=== PATIENT | male | born 1955 | race Caucasian/White ===

== ENCOUNTER 2019-11-14 20:04 | Inpatient (IN) | payer MEDICARE ==
[~2019-11-14] VITALS: Ht 175.3 cm; Wt 90.3 kg
[2019-11-14] MEDS ORDERED: VITAMIN D1000 UNIT PO (20:23)
[2019-11-14] MEDS ORDERED: TOPROL XL100 MG PO (20:23)
[2019-11-14] MEDS ORDERED: LIPITOR80 MG PO (20:23)
[2019-11-14] MEDS ORDERED: LISINOPRIL10 MG PO (20:23)
[2019-11-14] MEDS ORDERED: BAYER CHEWABLE81 MG PO (20:23)
[2019-11-14] MEDS ORDERED: NITROSTAT0.4 MG SL (20:24)
[2019-11-14] MEDS ORDERED: OMEPRAZOLE40 MG PO (20:24)
[2019-11-14 21:01] LABS: BILIRUBIN NEGATIVE (NEGATIVE); GLUCOSE 500 mg/dL (NEGATIVE); KETONE NEGATIVE (NEGATIVE); NITRITE NEGATIVE (NEGATIVE); UROBILINOGEN NORMAL (NORMAL)
[2019-11-14 21:03] LABS: BASOPHILS 0.3 % (0-2); HEMOGLOBIN 13.8 g/dL (13.5-17.5); IMMATURE GRANULOCYTES 0.5 % (0-5); LYMPHOCYTES 42.5 % (15-50); MCH 29.9 pg (26.0-34.0); MCHC 34.5 g/dL (31.0-37.0); MCV 86.8 fL (80.0-100.0); MEAN PLATELET VOLUME 9.8 fL (7.4-10.4); MONOCYTES 9.5 % (2-11); NEUTROPHILS 45.2 % (40-80); PLATELET COUNT 226 10x3/uL (130-400); RBC 4.61 10x6/uL (4.20-6.10); RDW 12.5 % (11.5-14.5); WBC 6.1 10x3/uL (4.8-10.8)
[2019-11-14 21:14] LABS: CALCIUM 8.6 mg/dL (8.5-10.1); CARBON DIOXIDE 26.4 mmol/L (21.0-32.0); CHLORIDE - SERUM 91 mmol/L (98-107); CREATININE - SERUM 1.5 mg/dL (0.6-1.3); POTASSIUM - SERUM 4.9 mmol/L (3.5-5.1); SODIUM 122 mmol/L (136-145); UREA NITROGEN 22 mg/dL (7-18); eGFR NON AFRICAN AMERICAN 50 mL/min (90-120)
[2019-11-14 21:27] LABS: ALBUMIN 3.6 g/dL (3.4-5.0); ALKALINE PHOSPHATASE 130 U/L (30-120); ALT (SGPT) 58 U/L (10-68); BILIRUBIN - TOTAL 0.91 mg/dL (0.2-1.3); MAGNESIUM - SERUM 1.9 mg/dL (1.8-2.4); PRO BNP 74 pg/mL (0-125); THYROID STIMULATING HORMONE 2.01 uIU/mL (0.36-3.74)
[2019-11-14 21:32] LABS: CALC OSMOLALITY 286 mosm/kg (275-300); TROPONIN-I < 0.017 ng/mL (0.000-0.060)
[2019-11-14 21:33] LABS: GLUCOSE 780 mg/dL (74-106)
--- NOTE | 2019-11-14 21:58 | NUR ---
FSBS 379. EDP INFORMED.
--- NOTE | 2019-11-14 23:30 | NUR ---
RECEIVED TO FLOOR VIA WHEELCHAIR. ACCOMPANIED BY ER STAFF AND . A&O X 4. AMBULATED TO BED INDEPENDENTLY. VS STABLE. FSBS 327. PT REPORTS, "THAT SHERITA HORSE PAIN IN MY LEGS IS EASING DOWN AFTER THAT SHOT. REPORTS THIRST AND REQUESTS WATER. BRIEFLY EXPLAINED HOW SLIDING SCALE IS USED TO DETERMINE DOSE AND DIABETIC TEACHING PAPERS GIVEN. NORMAL RANGE GLUCOSE WRITTEN ON BOARD. SCDs IN ROOM, INSTRUCTED ON USE OF INCENTIVE SPIROMETER. YELLOW BAND APPLIED AND CASSIE MAT IN PLACE PT VERBALIZED UNDERSTANDING OF FALL PRECAUTIONS. CL IN REACH, NO FURTHER NEEDS, CTM.
--- NOTE | 2019-11-15 | NUR ---
NO TELEMETRY MONITORS AVAILABLE PER PLESSIS.
[2019-11-15 00:19] VITALS: BP 138/81; BMI 29.4
[2019-11-15 06:10] VITALS: BP 119/58
[2019-11-15 06:48] LABS: APTT 22.1 SECONDS (22.8-39.4); INR 0.92 (0.85-1.17); PROTIME 12.3 SECONDS (11.6-15.0)
--- NOTE | 2019-11-15 07:32 | NUR ---
ALERT AND ORIENTED. LUNGS CLEAR BILATERALLY. HEART SOUNDS S1 AND S2 HEARD IN ALL MATA. BOWEL SOUNDS ACTIVE X 4. SKIN INTACT WITHOUT REDNESS. DENIES NEEDS. BED LOW. CALL MAJOR AND PESRONAL ITEMS INREACH. WILL CONTINUE TO MONITOR.
[2019-11-15] MEDS ORDERED: MULTI-DAY VITAM1 TAB PO (08:41)
[2019-11-15] MEDS ORDERED: METFORMIN HCL500 M1 PO (08:42)
[2019-11-15 08:45] VITALS: BP 128/68
--- NOTE | 2019-11-15 08:48 | NUR ---
PATIENT STATES TAKES LIPITOR AT NIGHT. CALLED PHARMACY AND STATES WILL CHANGE TO Q HS.
[2019-11-15 09:49] LABS: ALKALINE PHOSPHATASE 97 U/L (30-120); ALT (SGPT) 45 U/L (10-68); BILIRUBIN - TOTAL 0.37 mg/dL (0.2-1.3); CALCIUM 8.3 mg/dL (8.5-10.1); CARBON DIOXIDE 23.4 mmol/L (21.0-32.0); CHLORIDE - SERUM 100 mmol/L (98-107); PROTEIN - SERUM 5.9 g/dL (6.4-8.2); SODIUM 132 mmol/L (136-145); UREA NITROGEN 19 mg/dL (7-18)
[2019-11-15 09:52] LABS: CALC OSMOLALITY 275 mosm/kg (275-300); CREATININE - SERUM 0.8 mg/dL (0.6-1.3); GLUCOSE 268 mg/dL (74-106); POTASSIUM - SERUM 3.7 mmol/L (3.5-5.1); eGFR NON AFRICAN AMERICAN > 90 mL/min (90-120)
[2019-11-15 10:01] VITALS: Ht 175.3 cm; Wt 90.3 kg
[2019-11-15 10:37] LABS: BASOPHILS 0.3 % (0-2); EOSINOPHILS 2.8 % (0-7); HEMOGLOBIN 12.3 g/dL (13.5-17.5); IMMATURE GRANULOCYTES 0.7 % (0-5); LYMPHOCYTES 45.1 % (15-50); MCH 29.8 pg (26.0-34.0); MCHC 35.1 g/dL (31.0-37.0); MEAN PLATELET VOLUME 9.8 fL (7.4-10.4); MONOCYTES 8.3 % (2-11); NEUTROPHILS 42.8 % (40-80); PLATELET COUNT 209 10x3/uL (130-400); RBC 4.13 10x6/uL (4.20-6.10); RDW 12.5 % (11.5-14.5)
[2019-11-15 10:51] LABS: MCV 84.7 fL (80.0-100.0)
--- NOTE | 2019-11-15 11:07 | NUR ---
EFE SANTILLAN NOTIFIED THAT PATIENT'S BLOOD SUGAR 485. NEW ORDERS GIVEN AND PLACED.
--- NOTE | 2019-11-15 11:47 | NUR ---
PATIENT RETURNED FROM BRONCHOSCOPY. VITALS STABLE. WILL CONTINUE TO MONITOR.
[2019-11-15 12:00] VITALS: BP 134/69
--- NOTE | 2019-11-15 13:14 | NUR ---
PATIENT BLOOD SUGAR DOWN TO 354 ON RECHECK. WILL CONTINUE TO MONITOR.
--- NOTE | 2019-11-15 14:56 | NUR ---
DIETARY CONSULT PLACED FOR DIABETIC EDUCATION PER EFE SANTILLAN.
[2019-11-15 16:00] VITALS: BP 120/69
--- NOTE | 2019-11-15 18:04 | NUR ---
RESTING IN BED. DENIES NEEDS. WILL CONTINUE TO MONITOR.
[2019-11-15 20:00] VITALS: BP 114/64
--- NOTE | 2019-11-15 21:00 | NUR ---
REFUSING ALL MEDS OTHER THAN INSULINS. REPORTS HE'S NOT PAYING FOR THE HOSPITALS PILLS WHEN HE HAS HIS OWN.
[2019-11-16] VITALS: BP 106/52
[2019-11-16 04:00] VITALS: BP 125/77
[2019-11-16 05:26] LABS: BASOPHILS 0.3 % (0-2); EOSINOPHILS 2.6 % (0-7); HEMATOCRIT 37.7 % (42.0-54.0); IMMATURE GRANULOCYTES 0.4 % (0-5); LYMPHOCYTES 35.6 % (15-50); MCH 29.5 pg (26.0-34.0); MCHC 34.5 g/dL (31.0-37.0); MCV 85.5 fL (80.0-100.0); MEAN PLATELET VOLUME 9.7 fL (7.4-10.4); MONOCYTES 7.1 % (2-11); PLATELET COUNT 212 10x3/uL (130-400); RBC 4.41 10x6/uL (4.20-6.10); RDW 12.6 % (11.5-14.5)
[2019-11-16 05:46] LABS: WBC 7.7 10x3/uL (4.8-10.8)
[2019-11-16 05:58] LABS: ALBUMIN 2.8 g/dL (3.4-5.0); ALKALINE PHOSPHATASE 93 U/L (30-120); ALT (SGPT) 45 U/L (10-68); CALC OSMOLALITY 275 mosm/kg (275-300); CALCIUM 8.4 mg/dL (8.5-10.1); CARBON DIOXIDE 26.8 mmol/L (21.0-32.0); CHLORIDE - SERUM 101 mmol/L (98-107); CREATININE - SERUM 0.9 mg/dL (0.6-1.3); GLUCOSE 254 mg/dL (74-106); POTASSIUM - SERUM 4.1 mmol/L (3.5-5.1); PROTEIN - SERUM 5.5 g/dL (6.4-8.2); SODIUM 133 mmol/L (136-145); UREA NITROGEN 15 mg/dL (7-18); eGFR NON AFRICAN AMERICAN > 90 mL/min (90-120)
[2019-11-16 11:05] VITALS: BP 121/71
--- NOTE | 2019-11-16 13:53 | NUR ---
Nutrition consult re: diabetic diet From 11/15/19 RDN reviewed diabetic consistent CHO diet with pt. Pt reports eating and drinking a lot of CHO at meals. Pt lunch tray had 5 milks. Pt reports drinking a gallon of milk a day. Pts diet recall reveals pt is eating a lot of fast food due to he and his do not cook at home. RDN reviewed CHO containing foods and the affect CHO have on glucose. Stressed the importance of decreasing CHO intake and increasing nonstarchy vegetables, good fats in diet to replace CHO. Reviewed sample menus. Advised pt to take all medications as prescribed along with following a consistent CHO diet to get glucose under better control. Discussed glucose numbers and A1c. Provided pt with printed diet information and RDN name and phone nuumber. Pt with fair understanding of information provided. RDN visited with pt again today to answere any questions he had. Pt states he is ready to go home. Pt would benefit from outpatient diabetic diet education at discharge.
[2019-11-16] MEDS ORDERED: LANTUS INS100 UNITS/ SC (14:11)
[2019-11-16] MEDS ORDERED: GLUCOPHAGE500 MG PO (14:11)
--- NOTE | 2019-11-16 15:45 | MORECARE ---
CASE MANAGEMENT DISCHARGE SUMMARY PATIENT: SAMIRA STALLINGS UNIT: [id number] ADM DATE: 11/15/19 AGE: 64 : 57 SEX: M ROOM/BED: D.2232 AUTHOR: DAVION ANDREA PHYSICIAN: REFERRING PHYSICIAN: GERRY BUI MD DATE OF SERVICE: 11/16/19 Discharge Plan Patient Name: SAMIRA STALLINGS [facility] [facility] 1955 Planned Disposition: Anticipated Discharge Date: Discharge Date: Expected LOS: Initial Reviewer: [email or web address] Initial Review Date: 11/16/2019 Generated: 11/16/19 4:45 pm Comments DCP- Discharge Planning Updated by [email or web address]: Carla Peck on 11/16/19 2:[address] Patient Name: SAMIRA STALLINGS Admission Status: ER Accout number: [id number] Admission Date: 11-15-2019 : 1955 Admission Diagnosis: Attending: HAO, Current LOS: 1 Anticipated DC Date: Planned Disposition: Primary Insurance: MEDICARE A & B Discharge Planning Comments: CM met with patient at bedside after explaining CM role and obtaining verbal consent. CM discussed availability / needs of home health, REHAB and medical equipment. PATIENT DENIES ANY DISCHARGE NEEDS. WRITTEN PRESCRIPTION FOR GLUCOMETER, LANCETS AND TEST STRIPS GIVEN. STATES HE IS GOING TO GET THE SUPPLIES FROM [facility]. RN DID DIABETIC TEACHING WITH HIM. FAMILY AT BEDSIDE TO TRANSPORT HOME. CM PHONE NUMBER GIVEN IN CASE THEY HAVE ANY QUESTIONS OR PROBLEMS. Stationary Plant Operators: Carla Peck Patient Name: SAMIRA STALLINGS Page [id number] at 1545 All edits/amendments must be made on the electronic document DICTATION DATE: 11/16/19 1545 MARKETING AMBASSADOR: BRODERICK 11/16/19 1545 RPT#: [id number] DC DATE: STATUS: ADM IN [facility] [address] [place] [address] END OF REPORT
--- NOTE | 2019-11-17 10:56 | NUR ---
PT REPORTS RX'S FOR INSULIN AND METFORMIN NOT AT PHARMACY. CHECKED WITH CIRILO BURTON AT [facility] AND WERE NOT THERE. SPOKE WITH KATRIN ELY, PHARMACIST, AND CALLED IN LANTUS AND METFORMIN PRESCRIBED.
--- NOTE | 2019-11-17 16:33 | MORECARE ---
CASE MANAGEMENT DISCHARGE SUMMARY PATIENT: SAMIRA STALLINGS UNIT: [id number] ADM DATE: 11/15/19 AGE: 64 : 57 SEX: M ROOM/BED: D.2232 AUTHOR: DAVION ANDREA PHYSICIAN: REFERRING PHYSICIAN: GERRY BUI MD DATE OF SERVICE: 11/17/19 Discharge Plan Patient Name: SAMIRA STALLINGS Facility: [facility]:[place] : 1955 Planned Disposition: Anticipated Discharge Date: Discharge Date: 11/16/2019 Expected LOS: Initial Reviewer: [email or web address] Initial Review Date: 11/16/2019 Generated: 11/17/19 5:33 pm Comments DCP- Discharge Planning Updated by [email or web address]: Carla Peck on 11/16/19 2:[address] Patient Name: SAMIRA STALLINGS Admission Status: ER Accout number: [id number] Admission Date: 11-15-2019 : 1955 Admission Diagnosis: Attending: HAO, Current LOS: 1 Anticipated DC Date: Planned Disposition: Primary Insurance: MEDICARE A & B Discharge Planning Comments: CM met with patient at bedside after explaining CM role and obtaining verbal consent. CM discussed availability / needs of home health, REHAB and medical equipment. PATIENT DENIES ANY DISCHARGE NEEDS. WRITTEN PRESCRIPTION FOR GLUCOMETER, LANCETS AND TEST STRIPS GIVEN. STATES HE IS GOING TO GET THE SUPPLIES FROM [facility]. RN DID DIABETIC TEACHING WITH HIM. FAMILY AT BEDSIDE TO TRANSPORT HOME. CM PHONE NUMBER GIVEN IN CASE THEY HAVE ANY QUESTIONS OR PROBLEMS. Food Service Attendant: Carla Peck Last DP export: 11/16/19 2:45 p Patient Name: SAMIRA STALLINGS Page [id number] at 1633 All edits/amendments must be made on the electronic document DICTATION DATE: 11/17/19 1633 CALL OUT OPERATOR: BRODERICK 11/17/19 1633 RPT#: [id number] DC DATE:11/16/19 STATUS: DIS IN [facility] [address] [facility] [place] [address] END OF REPORT
== END 2019-11-16 16:23 | disposition home or self-care (01) | DRG 638 ==
LOC: D.ER 20:04 → D.MS 22:20 → OBSVTIME 22:20 → D.MS 11-15 15:47
PROVIDERS: Family Medicine; ADMIT Family Medicine; ATTEND Family Medicine
DX: E11.65 Type 2 diabetes mellitus with hyperglycemia (principal); N17.9 Acute kidney failure, unspecified; I25.10 Atherosclerotic heart disease of native coronary artery without angina pectoris; I10 Essential (primary) hypertension; K21.9 Gastro-esophageal reflux disease without esophagitis; D64.9 Anemia, unspecified